=== PATIENT | male | born 1960 | race African-American/Black ===

== ENCOUNTER → 2016-10-28 | Day surgery (SDC) | payer BC ==
[~2016-10-28] MED LIST: LIPITOR20 MG PO; TOPROL XL50 MG PO
--- NOTE | ~2016-10-28 | OR ---
Unit #: [id number] #: [id number] Patient: SUZANNE RICHARD [id number] [address] [address] [id number] O MR#: [id number] NAME: SUZANNE RICHARD. ROOM: Date of Procedure: 10/28/2016 Admission Date: 10/28/2016 Surgeon: Yuriy Benavides M.D. : 1960 Attending Physician: Yuriy Benavides M.D. OPERATIVE REPORT PREOPERATIVE DIAGNOSIS Screening colonoscopy. POSTOPERATIVE DIAGNOSIS Normal colon. PROCEDURE PERFORMED Colonoscopy. ANESTHESIA IV sedation. COMPLICATIONS None. INDICATIONS FOR PROCEDURE The patient is a 55-year-old gentleman, who presents for screening colonoscopy. DESCRIPTION OF PROCEDURE The patient was taken to the operating theater and placed in left lateral decubitus position. IV sedation was initiated. Digital rectal exam was normal. Colonoscope was then passed under direct vision and navigated to the cecum. The patient had excellent prep. I visualized the entire colon, I saw no evidence of neoplastic lesions, diverticula, colitis, or other findings. He tolerated the procedure well and sent to the recovery room in good condition. Dictated by... Zaira Mehta/gill TD: 10/28/2016 09:24 JOB #: [id number] Unit #: [id number] #: [id number] Patient: SUZANNE RICHARD OPERATIVE REPORT Page 1 of 1 X Yuriy Benavides MD X PROCEDURE OPERATIVE NOTE
== END | disposition home or self-care (01) ==
LOC: COPS 06:44
DX: Z12.11 Encounter for screening for malignant neoplasm of colon (principal); I10 Essential (primary) hypertension; E78.5 Hyperlipidemia, unspecified; Z79.899 Other long term (current) drug therapy
CPT/HCPCS: J3010